=== PATIENT | male | born 1985 | race African-American/Black ===

== ENCOUNTER 2020-08-22 13:11 | Inpatient (IN) | payer OTHER ==
[~2020-08-22] VITALS: Ht 170.2 cm; Wt 37.6 kg
[~2020-08-22 13:11] MED LIST: BELSOMRA5 MG PO; GABAPENTIN 100100 MG PO; NAPROSYN500 MG PO; STRIBILD TABLE1 EACH PO; TRAZODONE 150150 M1 PO; TRAZODONE HCL50 MG PO; ZOLOFT25 MG PO
[2020-08-22 13:14] VITALS: BP 104/68
[2020-08-22 14:03] LABS: HEMATOCRIT 26.6 % (42.0-52.0); HEMOGLOBIN 8.3 gm/dL (14.0-18.0); MCH 26.4 pg (26.0-34.0); MCHC 31.1 g/dL (28.0-37.0); MCV 84.7 fL (80.0-100.0); PLATELET COUNT 177 thou/uL (150-400); RBC 3.14 mil/uL (4.50-6.00); RDW 21.9 % (10.5-14.5); WBC 6.9 thou/uL (4.0-11.0)
[2020-08-22 14:07] LABS: CALCIUM 9.3 mg/dL (8.5-10.1); CREATININE 0.7 mg/dL (0.7-1.3); POTASSIUM 4.2 mmol/L (3.5-5.1)
[2020-08-22 14:13] LABS: ALBUMIN 2.8 g/dL (3.4-5.0); TOTAL BILIRUBIN 0.3 mg/dL (0.2-1.0); TOTAL PROTEIN 7.4 g/dL (6.4-8.2)
[2020-08-22] MEDS ORDERED: BIKTARVY 50-201 EACH PO (14:24)
[2020-08-22 14:26] LABS: ABSOLUTE NEUTROPHILS 5.5 thou/uL (1.4-8.2); ANISOCYTOSIS 2+; HYPOCHROMASIA 1+; OVALOCYTES 1+; SCHISTOCYTES 1+; TEARDROPS 1+
[2020-08-22 16:11] LABS: URINE BILIRUBIN NEGATIVE (Negative); URINE BLOOD NEGATIVE (Negative); URINE CLARITY CLEAR; URINE COLOR YELLOW; URINE GLUCOSE-RANDOM* NEGATIVE (Negative); URINE KETONES NEGATIVE (Negative); URINE LEUKOCYTES-REFLEX NEGATIVE (Negative); URINE NITRITE-REFLEX NEGATIVE (Negative); URINE PROTEIN (DIPSTICK) TRACE (Negative)
[2020-08-22 17:09] VITALS: BP 105/63
--- NOTE | 2020-08-22 17:10 | NUR ---
HANDOFF STOOL SENT TO 4S AT THIS TIME
[2020-08-22 17:33] VITALS: BP 116/78
[2020-08-22 18:12] VITALS: BP 112/67
[2020-08-22 19:30] VITALS: BP 119/80
[2020-08-22 21:55] VITALS: BP 119/80
--- NOTE | 2020-08-23 02:44 | NUR ---
PT ADMITTED TO UNIT PRIOR TO SHIFT REPORT, ADMISSION HISTORY OBTAINED. PT AOX4. PT REPORTS 10/10 ACHING PAIN TO MIDLINE OF BACK. PT RECEIVING SCHEDULED PO MORPHINE ER BID AND PRN IV MORPHINE Q4HR, REPORTING NO RELIEF. PT REQUESTING TO HAVE DILAUDID GIVEN PREVIOUSLY. ONCNANCI SUPERVISOR DIAGNOSTIC NOTIFIED, EMAR UPDATED. PT GIVEN ONETIME IV DILAUDID REPORTING PARTIAL EFFECT 3/10 DULL BACK PAIN. PROVIDED HEATED BLANKET, PT REPORTING INCREASED RELIEF. NOTIFIED ONCALL SUPERVISOR DIAGNOSTIC, RECEIEVED ORDER FOR KPAD. PT DENIES SOB WHILE ON ROOM AIR. PT TOLERATING PO INTAKE OF FLUIDS AND REGULAR DIET WITHOUT ISSUE. PT WITHOUT NAUSEA OR EMESIS. PT VOIDING PER URINAL. PT RESTING IN BED THROUGHOUT SHIFT, OBSERVED SHIFTING INDEPENDENTLY. PT REPORTS CHRONIC NUMBNESS IN BOTH FEET. CAPILLARY REFILL LESS THAN 3SEC, BLE WITH FAINT PULSES, BUE WITH STRONG PULSES. PT NOTIFIED STAFF, REPORTING 'I WOULD RATHER LEAVE AND GO HOME AND BE IN PAIN THAN SIT IN THE HOSPITAL AND BE IN PAIN'. ONCALL SUPERVISOR DIAGNOSTIC NOTIFIED, EMAR TO BE UPDATED. PT GIVEN PRN IV DILAUDID Q4HR WITH POSITIVE PARTIAL EFFECT PT REPORTS 5/10 DULL BACK PAIN COMPARED TO 10/10 THROBBING BACK PAIN. PT ENCOURAGED TO NOTIFY STAFF FOR ALL NEEDS, CALL LIGHT WITHIN REACH, BED ALARM ON, BED LOCKED IN LOWEST POSITION, FREQUENT MONITORING WILL CONTINUE.
[2020-08-23 04:19] VITALS: BP 115/75
[2020-08-23 04:35] LABS: HEMOGLOBIN 8.5 gm/dL (14.0-18.0); MCH 27.1 pg (26.0-34.0); MCHC 32.6 g/dL (28.0-37.0); MCV 82.9 fL (80.0-100.0); RBC 3.14 mil/uL (4.50-6.00); WBC 6.7 thou/uL (4.0-11.0)
[2020-08-23 04:58] LABS: CALCIUM 9.5 mg/dL (8.5-10.1); CREATININE 0.6 mg/dL (0.7-1.3); POTASSIUM 4.1 mmol/L (3.5-5.1)
[2020-08-23 07:10] VITALS: BP 118/77
--- NOTE | 2020-08-23 09:03 | NUR ---
Assumed care of pt at 0700. Pt a&ox4. Pt c/o back pain. Prn pain meds administered. Uses urinal at bedside. Call light within reach. Fall precautions in place. Will continue to monitor.
--- NOTE | 2020-08-23 12:19 | NUR ---
ASSESSMENT: CM REVIEWED CHART AND MET WITH PATIENT AT THE BEDSIDE. PT IS ALERT AND ORIENTED X4. PT REPORTS THAT HE LIVES IN A HOUSE ALONE. PT REPORTS NO STEPS TO ENTER OR ONCE INSIDE. PT WAS ADMITTED DUE TO ON-GOING LUMBAR BACK PAIN THAT CONTINUES TO WORSEN. PT REPORTS HAVING HX OF LYMPHOMA AND GETTING CHEMO AND FOLLOWS ONCOLOGIST THROUGH . PT HAS HX OF HIV. ID HAS BEEN CONSULTED. PT REPORTS THAT HE USES A CANE AND WALKER AT TIMES FOR AMBULATION. PT REPORTS RECEIVING IN HOME CARE THROUGH [facility] STATING SOMEONE COMES DAILY FOR ABOUT 3 HOURS. PT DENIES HAVING HH. IF NEEDING HH PT HAS NO PREFERENCE OF HH AGENCY. CM WILL CONTINUE TO FOLLOW TO ASSIST NEEDED.
[2020-08-23 15:50] VITALS: BP 111/71
[2020-08-23 18:58] VITALS: BP 116/72
--- NOTE | 2020-08-23 23:31 | NUR ---
ASSUMED PT CARE AT 1900.PT C/O BACK PAIN,MANAGED WITH MED.DR PEREZ HERE AT HS TO SEE PT.ORDER NOTED FOR US R ARM,COMPLETED AT THIS TIME.URINAL AT BEDSIDE.PICC IN PLACE WITH NO REDNESS NOTED.PT ABLE TO REPOSITION SELF IN BED.CALL LIGHT WITHIN REACH.
[2020-08-24 05:00] VITALS: BP 121/72
--- NOTE | 2020-08-24 07:56 | HC ---
[facility] [place] [address] CONSULTATION Name: VOLODYMYR LLOYD Room #: 437-P ADM IN M.R.#: [id number] Admission: 08/22/20 Attend Phys: Syed Emmanuel MD Discharge: Date of : 87 Report #: [id number] THIS REPORT FOR: cc: FAM - No family physician/PCP FAM - No family physician/PCP Rei Vazquez MD ~ DOC #: [id number] cc: Syed Emmanuel MD, Mckinley Dela Cruz MD, Jonathon Luna MD DATE OF SERVICE: 08/22/2020 REASON FOR CONSULTATION: History of lymphoma. HISTORY OF PRESENT ILLNESS: The patient was admitted for back pain. The patient has a somewhat complex history that I get from the chart been diagnosed with diffuse large B cell lymphoma in 2017. He was treated elsewhere and I believe at that time, received therapy with EPOCH and also intrathecal methotrexate for five cycles. He signed out AMA after five cycles, did not complete six cycles. In about 2017, there is some question about some lymph node enlargement. They were biopsied and thought to be reactive in nature. Unfortunately, then in 05/2020, I believe he was diagnosed with recurrent lymphoma. He was then begun on EPOCH chemotherapy with Dr. Papa Yoon. He completed about 3 cycles of this, had a repeat PET scan on about 07/14 that compared to 11/05/2019 and a CAT scan earlier that showed marked improvement in extensive and diffuse hypermetabolic adenopathy. They did raise a question about some interval lung lesions and also some MRI changes. The patient had some MRI images at [facility] on 07/17 and these were thought to represent per their report multiple acute bone infarcts. During the same hospitalization, the patient had methicillin-sensitive Staph aureus. He had a DEISI that did not show any vegetations and his bacteremia cleared and I believe antibiotics were completed per infectious disease. The patient had received three cycles of the EPOCH chemotherapy. He returned to see Dr. Bourne on about 08/08, but because of repeated noncompliance warning, he was discharged/fired from the clinic on that date. He then saw Dr. Mckinley Dela Cruz for the first time on 08/18/2020 with plans to complete three more cycles of R-CHOP chemotherapy. This has not been begun. The patient was admitted for repeat back pain is from mid back, does not radiate to the side or down his legs, worse with movement. He denies any headache or fevers or chills or nausea or vomiting, arm or leg swelling. PAST MEDICAL HISTORY: Notable for the diffuse large B cell lymphoma as mentioned above that is not double or triple-hit negative. Also, history of PICC associated DVT. During that admission at [facility], had been [facility] [address] [place] [address] CONSULTATION Name: VOLODYMYR LLOYD Room #: 437-P ADM IN M.R.#: [id number] Admission: 08/22/20 Attend Phys: Syed Emmanuel MD Discharge: Date of : 86 Report #: [id number] on Xarelto, but was not continued with the transition of care. Also, history of HIV with meds, history of MSSA bacteremia reported cleared, history of lung nodules that I think have been reported to have cleared up, will need close monitoring, history of asthma, history of bilateral lower extremity neuropathy, history of hypertension, history of viral infection, have not been on acyclovir in the past. SOCIAL HISTORY: Disabled. FAMILY HISTORY: Noncontributory. MEDICATIONS: Mentioned. At this current time include hydromorphone p.r.n., Lovenox 40 mg at bedtime, MS Contin 15 b.i.d., hydromorphone p.r.n. He is on his Biktarvy. PHYSICAL EXAMINATION: GENERAL: The patient appears his stated age. VITAL SIGNS: Height is 5 feet 7 inches, 170.2 cm, weight 83 pounds or 37.8 kilograms. Blood pressure 118/77, pulse 122, temperature 98.5, O2 sat 100%. HEENT: Oropharynx without injection, masses, or leukoplakia. NECK: No lymph nodes in the supraclavicular, cervical, axillary region. ABDOMEN: Scaphoid, no masses. EXTREMITIES: Without clubbing, cyanosis or edema. LABORATORY DATA: Review shows a white count of 6.7, platelets 183, hemoglobin 8.5. Basic chemistries, creatinine of 0.6. ASSESSMENT AND PLAN: 1. Diffuse large B cell lymphoma, reportedly responding, but waiting to begin or restart R-CHOP chemotherapy. We will defer to Dr. Mckinley Dela Cruz who may know him better. 2. Recurrent back pain as above. It is confusing whether this is related to MRI lesions or infection or cancer. We will ask for films from [facility] to be sent, but will most likely need to reimage the patient to understand this. 3. History of PICC line associated deep vein thrombosis. He is on Lovenox, may consider restarting Xarelto. 4. Human immunodeficiency virus, Biktarvy per others. 5. Bilateral lung nodules, will need to monitor these. 6. Asthma, meds per others. 7. Bilateral lower extremity neuropathy, meds per others. 8. History of hypertension, meds per others. 9. History of systemic viral infection, meds per others that they deem necessary. [facility] [address] [place] [address] CONSULTATION Name: LLOYDVOLODYMYR Room #: 437-P [facility] IN .R.#: [id number] Admission: 08/22/20 Attend Phys: Syed Emmanuel MD Discharge: Date of : 87 Report #: [id number] Rei Vazquez MD RJM/HUS <ELECTRONICALLY SIGNED> By: Rei Vazquez MD 08/24/20 [id number] Rei Vazquez MD /nt
[2020-08-24 08:15] VITALS: BP 118/75
--- NOTE | 2020-08-24 10:04 | NUR ---
Assumed care of pt at 0700. Pt a&ox4. Pain controlled with prn pain meds. Sent to MRI this am. Physical therapy ordered. PICC line in place. Awaiting MRI results. Call light within reach. Will continue to monitor.
--- NOTE | 2020-08-24 11:54 | NUR ---
on-going assessment: CM REVIEWED CHART. PT IS SLOWLY PROGRESSING TOWARDS DISCHARGE GOALS. PT IS STILL HAVING PAIN AND MRI IS ORDERED AND WORKING ON PAIN CONTROL. PT IS WORKING WITH PHYSICAL THERAPY WHO IS RECOMMENDING HOME WITH HOME HEALTH. CM UPDATED [facility] THAT PATIENT IS NOT DISCHARGING TODAY. CM WILL CONTINUE TO FOLLOW TO ASSIST NEEDED.
[2020-08-24 17:27] VITALS: BP 120/82
[2020-08-24 19:06] VITALS: BP 129/81
--- NOTE | 2020-08-24 21:20 | HC ---
[facility] [place] [address] CONSULTATION Name: VOLODYMYR LLOYD Room #: 437-P ADM IN M.R.#: [id number] Admission: 08/22/20 Attend Phys: Syed Emmanuel MD Discharge: Date of : 87 Report #: [id number] THIS REPORT FOR: cc: FAM - No family physician/PCP FAM - No family physician/PCP Godfrey Stanley MD ~ DOC #: [id number] Godfrey Stanley MD INFECTIOUS DISEASE CONSULTATION REASON FOR CONSULTATION: I was asked to evaluate concerning back pain in the setting of HIV, chemotherapy for lymphoma, and recent high-grade Staphylococcus aureus bacteremia. HISTORY OF PRESENT ILLNESS: The patient was a 34-year-old longstanding HIV infection, on Biktarvy with what the patient describes as reasonable control. 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 Biopsy positive for Burkitt's lymphoma and treated with chemotherapy over the past 6 weeks. He was hospitalized at [facility] on 07/14/2020 with high-grade Staphylococcus aureus bacteremia, which was positive from 07/13/2020 through 07/20/2020. Cleared his bloodstream on 07/23/2020. Transthoracic echocardiogram and transesophageal echocardiogram was negative for vegetation. He did have evidence of a right upper extremity occlusive DVT. His IV access was switched to a left upper extremity PICC. He completed a 4-week course of IV antibiotic therapy this past week. Presents now with increased back pain without fever, chills, or sweats. He has had generalized weakness. He was scheduled to restart his chemotherapy. He remained Biktarvy. His last CD4 count on 05/31/2020 was 28 with an HIV viral load of 2140. He has remained on Bactrim prophylaxis; however, the patient states he has not been on this recently. He also states he has not been on MAC prophylaxis either. Review of his record; however, states that he was supposed to be on this. The patient denies any chest pain or palpitations. No shortness of breath. He does have bilateral lung nodules noted on his most recent PET scan. He does have a history of asthma. He has had no other cardiac issues. It is noted that his initial diagnosis of large B cell lymphoma was in 2017. He did receive EPOCH and intrathecal methotrexate at that time. REVIEW OF SYSTEMS: A 14-point review of systems was negative other than what has been described above. He notes no radicular features. No change in his bowel or bladder function. He does have generalized lower extremity weakness. He has had no headaches. PAST MEDICAL HISTORY: Large B cell lymphoma, right upper extremity septic [facility] [address] [place] [address] CONSULTATION Name: FANNIE LLOYDRIN TONY Room #: 437-P [facility] IN M.R.#: [id number] Admission: 08/22/20 Attend Phys: Syed Emmanuel MD Discharge: Date of : 87 Report #: [id number] thrombophlebitis with DVT and high-grade Staphylococcus aureus bacteremia, AIDS, pulmonary nodules, asthma, peripheral neuropathy, hypertension. SOCIAL HISTORY: Disabled. FAMILY HISTORY: No report of tuberculosis. ALLERGIES: None known. MEDICATIONS: As noted on his MAY, now off antibiotics and continues on Biktarvy. PHYSICAL EXAMINATION: GENERAL: He is afebrile and hemodynamically stable. He is alert and cooperative. He was very thin. No rashes or decubiti. No palpable adenopathy. HEENT: Eyes without scleral icterus. Mouth without mucositis. NECK: Supple. LUNGS: Clear to auscultation. HEART: Regular, without murmur. ABDOMEN: Soft and nontender with no hepatosplenomegaly or mass. GENITORECTAL: Breast exam not performed. EXTREMITIES: Without clubbing, cyanosis, or edema. BACK: Exquisitely tender from the mid thoracic spine to his sacrum. No rash or swelling noted. The patient was able to raise both legs off the bed with reasonable strength. LABORATORY DATA: Reviewed. MICROBIOLOGY: Not available. CT scan of the lumbosacral spine reviewed. Chest x-ray, no acute process. CT scan of the thoracic spine, multiple osseous metastases; lumbar spine, multiple lucent lytic like lesions scattered throughout the spine, sacrum, and ilium consistent with metastatic disease. Possible fracture L4, no spinal stenosis evident. IMPRESSION: 1. Diffuse large cell lymphoma with multiple bony lesions, most likely cause of his back pain. 2. High grade Staphylococcus aureus bacteremia from right upper extremity central venous catheter and deep venous thrombosis having completed his course of antibiotics, would be at risk for seeding of his spine. He has not had any fever, chills, or sweats to go along with this. 3. Acquired immunodeficiency syndrome. [facility] [address] [place] [address] CONSULTATION Name: VOLODYMYR LLOYD Room #: 437-P ADM IN M.R.#: [id number] Admission: 08/22/20 Attend Phys: Syed Emmanuel MD Discharge: Date of : 86 Report #: [id number] 4. Bilateral lung nodules. 5. Asthma. 6. Peripheral neuropathy. 7. Hypertension. RECOMMENDATIONS: 1. We would image his spine with MRI scan to ensure no evidence of diskitis or epidural process. 2. Repeat blood cultures. 3. Continue with Biktarvy and given his low CD4 count, we would continue with Bactrim and MAC prophylaxis as well as Valtrex as he continues with his chemotherapy program. The patient follows with Dr. Guajardo at [facility]. He will follow up with him following discharge. Godfrey Stanley MD DJG/TREY <ELECTRONICALLY SIGNED> By: Godfrey Stanley MD 08/24/202119 26 46 Godfrey Stanley MD /nt
[2020-08-25 03:52] VITALS: BP 109/74
--- NOTE | 2020-08-25 04:00 | NUR ---
NOC SHIFT: PT CONTINUED TO REQUIRE PAIN MEDS ALL THRO THE NOC ATLEAST EVERY 3-4 HRS. DID NOT SLEEP MUCH. OBSERVED RUBBING LEGS, REPORTS SOME MUSCLE SPASMS, AFEBRILE, REPORTS GOOD APPETITE.
[2020-08-25 07:10] VITALS: BP 116/80
[2020-08-25] MEDS ORDERED: HYDROCODON-ACE1 EAC7 PO (09:32)
[2020-08-25] MEDS ORDERED: MS CONTIN15 MG PO (09:32)
[2020-08-25 09:48] VITALS: BP 116/80
--- NOTE | 2020-08-25 09:58 | NUR ---
Assumed care of pt at 0700. Pt a&ox4. C/o back pain. Prn pain meds administered. PICC line in place. Pt came to hospital with PICC line (confirmed with IV team). Per order, pt to be discharged with PICC line. [facility] was contacted to send pet and mri scans to [facility]. Task completed. Provider notified. Call light within reach. Fall precautions in place. Will continue to monitor.
--- NOTE | 2020-08-25 10:52 | NUR ---
on-going assessment:CM REVIEWED CHART AND SPOKE WITH PATIENT. PT HAS ORDERS TO DISCHARGE HOME TODAY WITH HOME HEALTH. PT WAS WORKING WITH PHYSICAL THERAPY AT HERE WHO RECOMMENDED TO RETURN HOME WITH HH. PT WAS IN SERVICE WITH [facility] PRIOR TO ADMISSION AND CM NOTIFIED [facility] THEIR LIASON OF DISCHARGE TODAY AND FAXED DISCHARGE PAPERWORK AND CONFIRMED THEY RECEIVED IT. PT RECEIVING CHEMO AND HAS OUTPATIENT ONCOLOGIST AND PHYSICAN WHO FOLLOWS FOR HIV. CASE CLOSED.
[2020-08-25 11:51] VITALS: BP 116/80
== END 2020-08-25 14:07 | disposition home health service (06) | DRG 975 ==
LOC: ER 13:11 → EROBS 16:23 → 4S 16:23
PROVIDERS: Nurse Practitioner Family; ADMIT Hospitalist; ATTEND Hospitalist
DX: C83.30 Diffuse large B-cell lymphoma, unspecified site (principal); B20 Human immunodeficiency virus [HIV] disease; E44.0 Moderate protein-calorie malnutrition; Z68.1 Body mass index [BMI] 19.9 or less, adult; M54.89 Other dorsalgia; G62.9 Polyneuropathy, unspecified; F41.9 Anxiety disorder, unspecified; I10 Essential (primary) hypertension; R91.1 Solitary pulmonary nodule; J45.909 Unspecified asthma, uncomplicated; Z86.718 Personal history of other venous thrombosis and embolism; Z91.041 Radiographic dye allergy status
CPT/HCPCS: 10195

== ENCOUNTER 2020-08-30 02:46 | Inpatient (IN) | payer OTHER ==
[~2020-08-30] VITALS: Ht 170.2 cm; Wt 53.1 kg
[~2020-08-30 02:46] MED LIST changes: +BIKTARVY 50-201 EACH PO; +HYDROCODON-ACE1 EAC7 PO; +MS CONTIN15 MG PO
[2020-08-30 02:47] VITALS: BP 135/88
[2020-08-30 04:01] LABS: CALCIUM 9.4 mg/dL (8.5-10.1); CREATININE 0.6 mg/dL (0.7-1.3)
[2020-08-30 04:02] LABS: ABSOLUTE NEUTROPHILS 2.3 thou/uL (1.4-8.2); BASOPHILS 0.4 % (0.0-2.0); EOSINOPHILS 3.2 % (0.0-3.0); HEMOGLOBIN 10.9 gm/dL (14.0-18.0); LYMPHOCYTES 7.1 % (24.0-44.0); MCHC 32.1 g/dL (28.0-37.0); PLATELET COUNT 258 thou/uL (150-400); POLYS 76.3 % (36.0-66.0); RDW 21.4 % (10.5-14.5); WBC 3.2 thou/uL (4.0-11.0)
[2020-08-30 04:07] LABS: ALBUMIN 2.6 g/dL (3.4-5.0); TOTAL BILIRUBIN 0.3 mg/dL (0.2-1.0); TOTAL PROTEIN 7.5 g/dL (6.4-8.2)
[2020-08-30 04:47] VITALS: BP 135/115
[2020-08-30 06:52] VITALS: BP 135/115
[2020-08-30 07:41] VITALS: BP 121/78
--- NOTE | 2020-08-30 07:41 | NUR ---
REPORT GIVEN TO BUTCH OSHEA AT THIS TIME, DENIES FURTHER QUESTIONS. PT IS READY FOR TRANSPORT
--- NOTE | 2020-08-30 14:53 | NUR ---
PT ADMITTED RELATED TO FAILURE TO THRIVE, DEHYDRATION, HIV BACK PAIN. CM REVIEWED CHART AND SPOKE WITH CARE TEAM. CM MET WITH PT AT BEDSIDE THIS DAY PT IS A&O X4. CM ROLE INTRODUCE. PT INDICATED HE RESIDES ALONE IN A HOUSE WITH NO STEPS. PT INDICATED HE HAS A FWW AND A CANE FOR HOME USE. PT INDICATED HE HAS HCBS THROUGH [employer] DAILY FOR 3HRS 7 DAYS A WEEK. PT HAD BEEN SET UP WITH [facility] UP[facility] DC FROM HERE 08/25/20. [facility] INDICATED THAT PT HAD REFUSED THEM THREE TIMES. NO SOC COMPLETED. CM SPOKE WITH PT'S SISTER WITH HIS PERMISSION AND SHE INDICATED THAT THEY THOUGHT HH WOULD BE MORE HELP. PT INDICATED THAT HE IS RECEPTIVE TO SHORT TERM POST ACUTE CARE STAY UPON DC. CM PROVIDED A LIST. CM EXPLAINED TO PT AND SISTER THAT PT'S AGE AND DESIRE TO CONTINUE CHEMO TREATMENTS MIGHT BE A BARRIER TO PLACEMENT. CM FOLLOWING REGARDING DC PLANNING.
[2020-08-30 15:58] VITALS: BP 119/68
--- NOTE | 2020-08-30 17:00 | NUR ---
Admitted from ER during shift change due to failure to thrive, transferred to bed safely. On telemetry; no complains and signs of chest pain, crushing sensation and heaviness; pt running tachycardic- Dr Ibrahim informed re: this. On room air. On regular diet- encouraged and assisted in eating and drinking; pt refusing meals- offered snacks and other options, pt said he will inform staff. Able to have a bowel movement today- charted. Continent of bowel and bladder, using bedpan as per request due to weakness. With L upper arm PICC line- RN from ER said pt came with PICC- confirmed placement thru chest xray- IV nurse informed during her AM rounds. NS at 126cc/hr infusing well at L upper arm PICC line. Admission assessment, history and education done; a/w pt to sign admission forms- left at bedside. Pt complained of pain and reporting unrelieved by PRN and scheduled medications- Dr Ibrahim informed re: this several times; asked patient re: his pain regimen at home and what works for him; pt became very upset and stating that no one is listening to him, reassurance and emotional support offered to patient, explained to him that the reason why I asked re: his pain regimen is to inform the hospitalist and give him meds that works for him better; pt remained upset and verbally abusive to staff. Dr Ibrahim called back and increased dosage of fentanyl- updated patient re: this. Pt refusing to be turned in his bed due to pain, kept comfortable by putting pillows. Falls bundle in place. Pt removed his telemetry despite explaning and attempting several times the indication for monitoring, Dr Ibrahim informed re: this and said to d/c telemetry monitoring. Pharmacy talked to pt this PM re: pt's home meds- will bring supply from home. To continue monitoring patient.
[2020-08-30 20:21] VITALS: BP 134/73
[2020-08-31 05:47] LABS: HEMATOCRIT 22.4 % (42.0-52.0); MCH 26.5 pg (26.0-34.0); MCHC 32.8 g/dL (28.0-37.0); MCV 80.8 fL (80.0-100.0); RBC 2.77 mil/uL (4.50-6.00); RDW 20.7 % (10.5-14.5); WBC 3.5 thou/uL (4.0-11.0)
[2020-08-31 05:50] LABS: CALCIUM 8.7 mg/dL (8.5-10.1); CREATININE 0.5 mg/dL (0.7-1.3); POTASSIUM 3.6 mmol/L (3.5-5.1)
[2020-08-31 05:52] LABS: HEMOGLOBIN 7.4 gm/dL (14.0-18.0)
--- NOTE | 2020-08-31 06:38 | NUR ---
Assumed pt care at 1900. A/OX4,VSS. Pt gets easily irritable with staff during cares;1:1 reassuarance given to pt and pt calm down and apologized to staff for being rude. C/o pain allover, medicated per EMAR with relief reported. LUE PICC with IVF infusing w/o any problems. Pt continent of B&B, voiding per bedpan/urinal. Fall precautions in place, calls approp for help.
[2020-08-31 07:54] VITALS: BP 124/71
--- NOTE | 2020-08-31 14:17 | NUR ---
CM FOLLOWED UP WITH PT AT BEDSIDE THIS DAY. PT INDICATED THAT HE HAD THOUGHT OF POSSIBLY ASKING TO TRANSFER TO [facility]. PT INDICATED THAT HE IS WANTING HIS CHEMO AND STATED THAT HE CAN'T GO TO BECAUSE OF HIS INSURANCE. CM INDICATED THAT CM COULD NOTIFY PHYSICAIN OF INQUIRY. HE INDICATED THAT WOULD BE ALRIGHT. PT HAD REFUSED THERAPY THIS DAY RELATED TO PAIN. CM NOTIFIED DR. OLIVARES AND HE INDICATED THAT HE HAD CONSULTED OUR ONCOLOGIST TO SEE PT. CM NOTIFIED PT. CM SPOKE FOLLOWING REGARDING DC PLANNING.
[2020-08-31 15:45] VITALS: BP 115/73
--- NOTE | 2020-08-31 18:44 | NUR ---
Assumed pt care at 7am.Pt in bed sleeping on and off. Assessment completed.vss Pt has poor appetite but wakes up only when in pain and asked for pain shot. Fentanyl prn given as ordered with relief.Sister called early this am and updates given.Consult called to Dr Michael office and message left.Report off to noc rn.
[2020-08-31 19:50] VITALS: BP 109/68
[2020-09-01 05:12] LABS: HEMATOCRIT 21.5 % (42.0-52.0); HEMOGLOBIN 7.1 gm/dL (14.0-18.0); MCH 26.4 pg (26.0-34.0); MCHC 32.9 g/dL (28.0-37.0); MCV 80.4 fL (80.0-100.0); RBC 2.68 mil/uL (4.50-6.00); RDW 20.4 % (10.5-14.5); WBC 2.7 thou/uL (4.0-11.0)
--- NOTE | 2020-09-01 05:33 | NUR ---
Assumed pt care at 1900. A/OX4,VSS. Pt complain of pain allover especially with movement, medicated for pain with some relief reported. Has a LUE PICC patent with NS infusing. Continent of B&B voids per urinal/bedpan. Sister visited at HS but didn't bring his retroviral drugs when asked indicated she'll bring them today. Pt resting quietly in bed w/o any distress noted,fall precautions in place,calls approp for help.
[2020-09-01 07:45] VITALS: BP 132/75
--- NOTE | 2020-09-01 15:09 | NUR ---
CM RECIEVED PC FROM PT'S SISTER AICHA EXPRESSING FRUSTRATION ABOUT CARE AND PERCEIVED LACK OF PROGRESS ON DISCHARGE PLAN AND SERVICES. CM INDICATED THAT CM HAD VISITED WITH PT YESTERDAY AND HE HAD ASKED ABOUT TRANSFERING TO ANOTHER FACILITY WHERE HE COULD RECIEVE CHEMO SERVICES AND HE FEELS THAT IS THE MOST PRESSING NEED AT THIS TIME. CM INDICATED THAT PER CONVRSATION WITH PT CM NOTIFIED PHYSICAIN OF DISCUSSION AND HE CONSULTED ID AND ONC. ONC SAW PT THIS AM. THEY CONSULTED [facility]. [facility] HAS NOW SEEN PT. SISTER AND PT INDICATED THAT THEY WANTED TRANSFER TO . CM NOTIFIED PHYSICIAN AND INITIATED PATIETN RERUESTED TRANSFER TO THIS AM. CM CONTACTE [facility] AND FAXED CLINIAL FOR REVIEW. [facility] CALLED AND INDICATED THAT THEY ARE AT [facility] AND AREN'T ACCEPTING INPATIENT TRANSFERS TODAY. CM NOTIFIED PT AND HIS SISTER WELL PHYSICAIN. PT AND SISTER INDICATED THEY WANTED TO DISCUSS NEXT STEPS. CM FOLLOWED UP WITH PT THIS AFTERNOON AND HE INDICATED THAT HE WISHED TO REMAIN HERE FOR CARES AT THIS TIME. HE ASKED THAT CM FOLLOW UP WITH [facility] IN THE AM. PT INDICATED IT WAS ALSO OK FOR CM TO CALL AND SPEAK WITH AICHA. CM ASKED IF PT WANTED ANY REFERRALS SENT ON HIS BEHALF IN THE MEANTIME TO [facility] OR ANY OTHER FACILITIES AND PT INDICATED NO. THEY ALSO ASKED TO SPEAK TO UN[employer]. CM NOTIFIED HER AND SHE MET WITH THEM. CM FOLLOWING REGARDING DC PLANNING.
[2020-09-01 15:55] VITALS: BP 113/73
[2020-09-01 18:54] VITALS: BP 137/83
--- NOTE | 2020-09-01 19:56 | NUR ---
Assumed pt care this am, pain is the main concern of the pt. Partial relief is noted and pain is constant. Medications are requested on the dot, pt refused PT. Pt is wanting to go to for treatment d/t his complexed case. Sister at the bedside, worked with CM. POC followed, endorsed to the night nurse.
--- NOTE | 2020-09-02 05:03 | NUR ---
ASSUMED CARE OF PT AT SHIFT CHANGE. PT IS AOX4 AND LETS NEEDS BE KNOWN. FALL PRECAUTION IN PLACE. PT REPORTED PAIN BUT DENIED NAUSEA OR SOA. PRN PAIN MEDS PROVIDED AROUND THE CLOCK. PT REPORTS THAT PAIN IS NOT WELL CONTROLLED. PT WAS CONSTIPATED AND HAD ONE SMALL BM THIS SHIFT. PT WAS ABLE TO SLEEP PART OF THE SHIFT. VSS AND NO S/S OF ACUTE DISTRESS. WILL CONTINUE TO MONITOR FOR CHANGES.
[2020-09-02 08:04] VITALS: BP 140/70
[2020-09-02 10:20] LABS: APTT 31.4 Seconds (24.5-32.8); INR 1.3
--- NOTE | 2020-09-02 14:46 | NUR ---
CM CALLED [facility] PER PT AND SISTER REQUESTE THIS AM TO SEE IF THEY WERE ABLE TO ACCEPT FOR TRANSFER. THEY REACHED OUT TO PHYSICIAN AND THEY INIDCATED THAT PT DIDN'T NEED TRANSFER. ID SAW PT AND ORDERED BIOPSY OF T6-7 AND L4-5. PT WAS THEN SUPPOSED TO GO TO IR FOR NEEDLE ASPIRATION. ID INDICATED THAT PT ISN'T MEDIALLY STABLE FOR DC AND THAT HE WANTS TO AWAIT CULTURES AND WILL BE HERE OVER THE WEEKEND. CM TO FOLLOW UP WITH PT AND SISTER. CM TO POSSIBLE FAX REFERRALS ON PT'S BEHALF.
--- NOTE | 2020-09-02 19:34 | NUR ---
Assumed pt care this am, vs stable. Pt went down for biobsy,did not tolerate the procedure well. Pain is not managed with medication, pt requested for more pain meds. MD informed, ativan given one time. Sister called, wanting to know the results of the biopsy, informed sister she will be informed of the results when they come out. Sisters came and infromed the staff they will be going AMA and will be taking the pt to . POC followed, AMA documentation signed. Pt is now dc and left with his sisters.
--- NOTE | 2020-09-03 08:42 | HC ---
[facility] [place] [address] CONSULTATION Name: VOLODYMYR LLOYD Room #: 464-P [facility] IN M.R.#: [id number] Admission: 08/30/20 Attend Phys: Melanie Gomez Patrice Discharge: 09/02/20 Date of : 87 Report #: [id number] THIS REPORT FOR: cc: NO FAMILY PHYSICIAN or PCP NO FAMILY PHYSICIAN or PCP Cayla Muhammad MD ~ DOC #: [id number] Cayla Muhammad MD DATE OF SERVICE: 09/01/2020 REASON FOR CONSULTATION: Back pain. HISTORY OF PRESENT ILLNESS: The patient is a 34-year-old male with metastatic lymphoma who reports increase in back pain 3-4 weeks ago without a specific injury. He reports that he can no longer walk due to back pain. He has been admitted to [facility] a few times over the last few weeks and was admitted last time due to difficulty getting care at home. He is admitted for back pain and possible placement. REVIEW OF SYSTEMS: NEUROLOGIC: Denies numbness or tingling. Denies bowel or bladder dysfunction. MUSCULOSKELETAL: See HPI. Denies other musculoskeletal complaints. Reports only mid to low back pain. PAST MEDICAL HISTORY: Significant for HIV, history of lymphoma for 8 years. ALLERGIES: IODINE. SOCIAL HISTORY: Lives at home by himself. Denies smoking or drinking alcohol. He has a sister that is involved in his care. HOME MEDICATIONS: Include morphine, hydrocodone. PAST SURGICAL HISTORY: None. LABORATORY DATA: Done on 09/01/2020 show white blood cell count 2.7, hemoglobin 7.1, hematocrit 21.5, platelet count 255. Chemistry: Sodium is 135. C-reactive protein is elevated at 125.8. PHYSICAL EXAMINATION: GENERAL: The patient is awake, alert and oriented. He interacts appropriately, although he verbalized significant frustration at me performing another examination on him as he reports "therapy just worked with him and he just got comfortable." He is in his hospital bed. He is a well-developed, well-nourished male. VITAL SIGNS: Most recent vital signs show temperature of 37.[address] [address] CONSULTATION Name: VOLODYMYR LLOYD Room #: 464-P [facility] IN [facility]#: [id number] Admission: 08/30/20 Attend Phys: Melanie Ibrahim Discharge: 09/02/20 Date of : 87 Report #: [id number] centigrade, heart rate 110, respiratory rate 16, blood pressure 132/75, pulse oximetry is 99% on room air. EXTREMITIES: Examination of his bilateral upper extremities grossly motor and sensory are intact. He moves both bilateral upper extremities without difficulty. There is no atrophy. Bilateral lower extremities, he holds his hips and a flexed knees in a flexed position. He reports sensation is intact to light touch throughout the entire aspect of his feet and legs. He has brisk capillary refill. EHL, FHL, dorsiflexion, plantar flexion, hip abduction and adduction are 5/5. He is unable to tolerate my palpation of his spine. IMAGING DATA: MRI and CT scan show the images were reviewed as well as the report from 08/24/2020 which show multiple metastases to the lumbar and thoracic spine including paraspinous soft tissue inflammation, infection is unlikely. IMPRESSION AND PLAN: Intractable back pain secondary to bony metastasis and lymphoma. He does not have any neurologic deficits. I would be in favor of him being transferred to [facility] for their spine surgeons or neurosurgeons to evaluate him. If further information is needed, I would recommend consultation with Neurosurgery. Cayla Muhammad MD VAD/KDA <ELECTRONICALLY SIGNED> By: Cayla Muhammad MD 09/03/20 [id number] Cayla Muhammad MD /nt
== END 2020-09-02 19:10 | disposition left against medical advice (07) | DRG 974 ==
LOC: ER 02:46 → 4W 04:37 → EROBS 04:37 → 4W 08:45
PROVIDERS: Emergency Medicine; Internal Medicine Hematology & Oncology; Nurse Practitioner Family; Specialist; ADMIT Hospitalist; ATTEND Hospitalist
PROC: 05HY33Z Insertion of Infusion Device into Upper Vein, Percutaneous Approach (ICD-10-PCS; 2020-08-31)
PROC: 0S903ZZ Drainage of Lumbar Vertebral Joint, Percutaneous Approach (ICD-10-PCS; principal; 2020-09-02)
DX: C83.30 Diffuse large B-cell lymphoma, unspecified site (principal); E43 Unspecified severe protein-calorie malnutrition; B20 Human immunodeficiency virus [HIV] disease; Z68.1 Body mass index [BMI] 19.9 or less, adult; M54.89 Other dorsalgia; R62.7 Adult failure to thrive; G62.9 Polyneuropathy, unspecified; F41.9 Anxiety disorder, unspecified; E86.0 Dehydration; R53.81 Other malaise; J45.909 Unspecified asthma, uncomplicated; R91.1 Solitary pulmonary nodule; Z91.041 Radiographic dye allergy status
CPT/HCPCS: 10047